=== PATIENT | male | born 1995 | race Caucasian/White ===

== ENCOUNTER 2020-01-14 14:21 | Emergency (ER) | payer BC ==
[~2020-01-14] VITALS: Ht 175.3 cm; Wt 97.5 kg
[2020-01-14 14:27] VITALS: BP 146/90
--- NOTE | 2020-01-14 15:08 | NUR ---
Pt here for left leg MRI, pt reports he was sent by for need of emergent MRI. Per ERP pt to not have MRI as acutely no emergent procedure will be done. Pt frustrated with this decision but informed that ER only does emergent MRIs.
--- NOTE | 2020-01-14 15:41 | NUR ---
Patient/Caregiver given discharge instructions and they have confirmed that they understand the instructions. Patient ambulatory with steady gait. Juancarlos bandages provided prior to DC.
== END 2020-01-14 15:43 | disposition home or self-care (01) ==
LOC: ED 15:16
DX: M79.672 Pain in left foot (principal); M93.272 Osteochondritis dissecans, left ankle and joints of left foot
CPT/HCPCS: 99281